=== PATIENT | female | born 1980 | race American Indian/Alaskan Native ===

== ENCOUNTER 2020-03-13 18:31 | Emergency (ER) | payer MEDICAID ==
[2020-03-13 20:51] VITALS: BP 223/128
[2020-03-13] MEDS ORDERED: hydrALAZINE 20 MG/1 ML INJ IV ONE (21:08)
--- NOTE | 2020-03-13 21:12 | Emergency Department Report ---
ED General Adult HPI - General Chief complaint: High BP Stated complaint: HBP PUI?: No Time Seen by Provider: 03/13/20 21:07 Source: patient Mode of arrival: Ambulatory Limitations: No Limitations - History of Present Illness Initial comments: Patient is a 39-year-old female that presents emergency room with complaints of elevated blood pressure and headache. Patient states her blood pressure today was 170/109 at home. Patient states she is taking her blood pressure medication. Patient states her primary care and carroting machine operator have been adjusting her blood pressure medication. Patient is currently taking losartan 50 mg daily and atenolol 50 mg daily. Patient states she recently had a stress test and a echo and were completely normal. Patient states that she has been eating a lot of salt since the pandemic started. Patient states that her headache started 2 days ago. Patient states the headache is a 3 out of 10. Patient states is a dull pressure. Patient denies visual changes. Patient denies neck stiffness. Patient denies fever and chills. Patient states that her headache is better with rest and when her blood pressure comes down. Patient states that her headache is worse with elevated blood pressure and increased salt intake and movement. Patient denies weakness. Patient denies shortness of breath. Patient denies chest pain. Patient denies recent travel. Patient denies recent international travel. Patient denies exposure to the novel coronavirus. Patient denies sick contacts. Patient denies fever and chills. Patient denies cough. Patient denies diarrhea. Patient denies coming in contact with anybody with symptoms of the novel coronavirus. -: Sudden Location: head Severity scale (0 -10): 2 Quality: aching Consistency: constant Improves with: rest Worsens with: movement, other Associated Symptoms: headaches. denies: confusion, chest pain, cough, diaphoresis, fever/chills, loss of appetite, malaise, nausea/vomiting, rash, seizure, shortness of breath, syncope, weakness Treatments Prior to Arrival: none - Related Data Home Medications Medication Instructions Recorded Confirmed Last Taken atenoloL [Tenormin] 50 mg PO QDAY 03/13/20 03/13/20 Unknown Previous Rx's Medication Instructions Recorded Last Taken Type Losartan [Cozaar] 100 mg PO QDAY 15 Days #15 tab 03/13/20 Unknown Rx hydroCHLOROthiazide [HCTZ] 25 mg PO QDAY 15 Days #15 tablet 03/13/20 Unknown Rx Allergies Allergy/AdvReac Type Severity Reaction Status Date / Time No Known Allergies Allergy Verified 03/13/20 18:50 ED Review of Systems ROS: Stated complaint: HBP Other details as noted in HPI Constitutional: denies: chills, fever Eyes: denies: eye pain, eye discharge, vision change ENT: denies: ear pain, throat pain Respiratory: denies: cough, shortness of breath, wheezing Cardiovascular: denies: chest pain, palpitations Endocrine: no symptoms reported Gastrointestinal: denies: abdominal pain, nausea, diarrhea Genitourinary: denies: urgency, dysuria, discharge Musculoskeletal: denies: back pain, joint swelling, arthralgia Skin: denies: rash, lesions Neurological: as per HPI, headache. denies: weakness, paresthesias Psychiatric: denies: anxiety, depression Hematological/Lymphatic: denies: easy bleeding, easy bruising ED Past Medical Hx - Past Medical History Previous Medical History?: Yes Hx Hypertension: Yes Hx Asthma: Yes - Surgical History Past Surgical History?: No - Family History Family history: no significant - Social History Smoking Status: Never Smoker Substance Use Type: Alcohol - Medications Home Medications: Home Medications Medication Instructions Recorded Confirmed Last Taken Type Losartan [Cozaar] 100 mg PO QDAY 15 Days #15 tab 03/13/20 Unknown Rx atenoloL [Tenormin] 50 mg PO QDAY 03/13/20 03/13/20 Unknown History hydroCHLOROthiazide [HCTZ] 25 mg PO QDAY 15 Days #15 tablet 03/13/20 Unknown Rx ED Physical Exam - General Limitations: No Limitations General appearance: alert, in no apparent distress - Head Head exam: Present: atraumatic, normocephalic - Eye Eye exam: Present: normal appearance, PERRL Pupils: Present: normal accommodation - ENT ENT exam: Present: mucous membranes moist - Neck Neck exam: Present: normal inspection - Respiratory Respiratory exam: Present: normal lung sounds bilaterally. Absent: respiratory distress, wheezes, rales - Cardiovascular Cardiovascular Exam: Present: regular rate, normal rhythm. Absent: systolic murmur, diastolic murmur, rubs, gallop - GI/Abdominal GI/Abdominal exam: Present: soft, normal bowel sounds - Extremities Exam Extremities exam: Present: normal inspection - Back Exam Back exam: Present: normal inspection - Neurological Exam Neurological exam: Present: alert, oriented X3 - Psychiatric Psychiatric exam: Present: normal affect, normal mood - Skin Skin exam: Present: warm, dry, intact, normal color. Absent: rash ED Course Vital Signs 03/13/20 03/13/20 03/13/20 18:52 20:49 22:06 Temperature 98.2 F Pulse Rate 88 73 Respiratory 15 18 Rate Blood Pressure 222/116 223/128 193/118 Blood Pressure [Right] O2 Sat by Pulse 100 Oximetry 03/13/20 03/13/20 22:30 22:51 Temperature Pulse Rate Respiratory Rate Blood Pressure Blood Pressure 170/98 162/97 [Right] O2 Sat by Pulse Oximetry - Reevaluation(s) Reevaluation #1: Patient states her headache is resolved. Patient's current blood pressure is 170/98. Patient responded well to therapy. Patient states she is feeling better. Patient's blood pressure improved. I discussed all results and clinical findings with patient. I discussed plan of care with patient. Patient agrees with plan of care. Patient is stable for discharge. Patient will be discharged home. Patient given discharge instructions. Patient voiced understanding of discharge instructions. 03/13/20 22:50 ED Medical Decision Making - Lab Data Result diagrams: 03/13/20 20:00 03/13/20 22:04 - Medical Decision Making Patient is a 39-year-old female that presents emergency room with complaints of headache, elevated blood pressure. Patient states that her headache is secondary to her blood pressure. Patient is compliant with her atenolol 50 and her losartan 50 mg daily. Patient states she is been eating a lot of salt and not having adequate water intake since she has been at home more with the pandemic. Patient blood pressure initial evaluation was 220/1 30. Patient had an IV placed and was given IV hydralazine. Patient's blood pressure improved. Patient's headache resolved prior to discharge. Patient responded well to therapy. Patient given discharge structures. Patient stable for discharge. Patient's labs were done and were essentially unremarkable. - Differential Diagnosis Uncontrolled BP, hypertensive emergency, high salt intake, headache Critical Care Time: Yes Critical care time in (mins) excluding proc time.: 35 Critical care attestation.: If time is entered above; I have spent that time in minutes in the direct care of this critically ill patient, excluding procedure time. Critical Care Time: 35 minutes ED Disposition Clinical Impression: Hypertensive urgency, Hypertensive emergency Hypertension Qualifiers: Hypertension type: unspecified Qualified Code(s): I10 - Essential (primary) hypertension Headache Qualifiers: Headache type: unspecified Headache chronicity pattern: acute headache Intractability: not intractable Qualified Code(s): R51 - Headache Disposition: DC-01 TO HOME OR SELFCARE Is pt being admited?: No Does the pt Need Aspirin: No Condition: Stable Instructions: Heart Healthy Diet (ED), How to Take a Blood Pressure (ED), DASH Eating Plan (ED), Low Sodium Diet (ED), Hypertensive Crisis (ED), Hypertension (ED) Additional Instructions: Patient to follow-up with primary care in 2 to 3 days. Patient to follow-up with carroting machine operator in 2 to 3 days. Patient to rest. Patient to increase water. . Patient to take Tylenol as needed for pain. Patient to take meds as directed. Patient to return to the ER if condition worsens, changes or new symptoms arise. Patient to increase water. Patient to eat a heart healthy, low-salt diet. Patient to monitor blood pressure and keep a blood pressure log. Patient to take blood pressure logs to her follow-up appointments. Prescriptions: Losartan [Cozaar] 100 mg PO QDAY 15 Days #15 tab hydroCHLOROthiazide [HCTZ] 25 mg PO QDAY 15 Days #15 tablet Referrals: RAMÓN HOFFMAN MD [Primary Care Provider] - 2-3 Days Time of Disposition: 22:50
[2020-03-13 22:54] LABS: Hematocrit 34.3 % (30.3-42.9); Hemoglobin 11.3 gm/dl (10.1-14.3); Mean Corpuscular HGB Conc 33 % (30-34); Mean Corpuscular Volume 88 fl (79-97); Platelet Count 192 K/mm3 (140-440); Red Cell Distribution Width 14.6 % (13.2-15.2)
[2020-03-13 23:19] LABS: Alanine Aminotransferase 14 units/L (7-56); Albumin 4.3 g/dL (3.9-5); BUN/Creatinine Ratio 26; Blood Urea Nitrogen 18 mg/dL (7-17); Calcium 9.3 mg/dL (8.4-10.2); Hemolysis Index 67
== END 2020-03-13 23:05 | disposition home or self-care (01) ==
LOC: ED 18:31
DX: I16.1 Hypertensive emergency (principal)
CPT/HCPCS: 36415; 80053; 85027; 96374; 99283; J0360